=== PATIENT | male | born 1980 | race Caucasian/White ===

== ENCOUNTER 2020-08-09 22:30 | Emergency (ER) | payer MEDICAID ==
[~2020-08-09] VITALS: Ht 172.7 cm; Wt 79.4 kg
[2020-08-09 23:20] VITALS: BP_SYST 116
--- NOTE | 2020-08-09 23:20 | NUR ---
Patient to ER bed 1 to gown for evaluation. Side rails up. Report given to VALENTINO.
--- NOTE | 2020-08-09 23:25 | NUR ---
PT AAO AND AMBULATORY C/O LEFT KNEE INJURY TODAY WHILE PLAYING BASKETBALL. PT FELL ONTO LEFT KNEE AND REPORTS 6/10 PAIN SCALE.
--- NOTE | 2020-08-09 23:30 | NUR ---
ER Dr. BURR at bedside examining patient.
[2020-08-09] MEDS ORDERED: KETOROLAC TROMETHAMINE 30 MG VIAL IM ONE (23:45)
--- NOTE | 2020-08-10 01:50 | NUR ---
Patient given written and verbal discharge instructions and verbalizes understanding. ER MD discussed with patient the results and treatment provided. Patient in stable condition. ID arm band removed. Rx of [place] and Motrin given. Patient educated on pain management and to follow up with PMD. Pain Scale 6/10. Opportunity for questions provided and answered. Medication side effect fact sheet provided.
[2020-08-10 01:52] VITALS: BP_SYST 118
== END 2020-08-10 01:52 | disposition home or self-care (01) ==
LOC: SED 22:30
DX: S83.92XA Sprain of unspecified site of left knee, initial encounter (principal); X37.1XXA Tornado, initial encounter; Y93.67 Activity, basketball; Y92.89 Other specified places as the place of occurrence of the external cause; Y99.8 Other external cause status
CPT/HCPCS: 29505; 73564; 96372; 99283; J1885